=== PATIENT | male | born 1970 | race African-American/Black ===

== ENCOUNTER 2017-10-02 11:41 | Emergency (ER) | payer SELFPAY ==
[~2017-10-02] VITALS: Ht 180.3 cm; Wt 106.0 kg
[2017-10-02 14:58] LABS: BASOPHILS % 0.7 % (0.0-2.0); EOSINOPHILS % 0.6 % (0.0-5.0); HEMATOCRIT. 50.2 % (42.0-52.0); HEMOGLOBIN. 16.3 g/dL (14.0-18.0); MEAN CORPUSCULAR HEMOGLOBIN 23.8 pg (28.0-32.0); MEAN CORPUSCULAR VOLUME 73.4 fL (80.0-94.0); MEAN PLATELET VOLUME 7.6 fl (7.4-10.4); MONOCYTES % 7.3 % (2.0-8.0); NEUTROPHILS % 58.4 % (40.0-76.0); PLATELET 252 x1000/uL (130-400); RED BLOOD CELL COUNT 6.84 mill/uL (4.7-6.1); RED CELL DISTRIBUTION WIDTH 14.9 % (11.6-14.6)
[2017-10-02 15:01] LABS: CHLORIDE 106 mEq/L (98-107)
[2017-10-02] MEDS ORDERED: SODIUM CHLORIDE 0.9% 1,000 ML IV ONE (17:42)
[2017-10-02] MEDS ORDERED: MECLIZINE 25MG TABLET PO ONE (17:45)
[2017-10-02] MEDS ORDERED: HYDROCHLOROTHIAZIDE 25MG TABLET PO ONE (19:45)
[2017-10-02 20:30] VITALS: BP 129/85
== END 2017-10-02 21:00 | disposition home or self-care (01) ==
LOC: ER 15:13
DX: H81.10 Benign paroxysmal vertigo, unspecified ear (principal); W22.8XXA Striking against or struck by other objects, initial encounter; Y93.89 Activity, other specified; Y92.69 Other specified industrial and construction area as the place of occurrence of the external cause; I10 Essential (primary) hypertension; Y99.0 Civilian activity done for income or pay; F17.210 Nicotine dependence, cigarettes, uncomplicated
CPT/HCPCS: 36415; 70450; 80053; 85025; 96360; 99285; J7030; J8597